=== PATIENT | female | born 1955 | race Caucasian/White ===

== ENCOUNTER 2022-03-23 20:15 | Emergency (ER) | payer MEDICARE, SELFPAY ==
[2022-03-23 20:40] VITALS: BP 141/90; PULSE 86; RESP 19; TEMP 36.6; O2SAT 99; BMI 33.6
--- NOTE | 2022-03-23 21:11 | HMH.EDUTC ---
[facility] [place] Disposition Clinical Impression: Sciatica Qualifiers: Laterality: left Qualified Code(s): M54.32 - Sciatica, left side Disposition: Home, Self-Care Condition on Discharge: Good Instructions: Sciatica, DI for Sciatica, Naproxen, Methylprednisolone Additional Instructions: *Naproxen yareli 12 hours with meal as needed for pain/inflammation *Not additional anti-inflammatory like Ibuprofen motrin, aleve, advil with the above amount of Naproxen You can still take Tylenol every 4 hours as needed if you need something else for pain moist heat every 20 minutes 3-4 times a day to affected area or warm soaks in the bath Medrol dose pack as prescribed *Keep this area active, no movement leads to more stiffness, However take it easy and avoid heavy lifting pushing or pulling *Follow up with you family doctor if no improvement for further treatment Prescriptions: methylPREDNISolone [Medrol 4mg tab] 4 mg PO DIRECTED #21 tab Transmission Status: Pending to [facility] Naproxen [Naproxen 500mg tab] 500 mg PO BID PRN #10 tab PRN Reason: Moderate Pain Transmission Status: Pending to [facility] Referrals: Jaguar Murrieta MD [Primary Care Provider] - As needed Time of Disposition: 21:24 Medical Decision Making - Deejay Inquiry Pt receiving controlled substance: No Deejay was queried for this patient: No Vital Signs: 03/23/22 20:40 Temperature 97.8 F Temperature Source Oral Pulse Rate [Right Brachial] 86 Respiratory Rate 19 Blood Pressure [Right Arm] 141/90 H Blood Pressure Mean [Right Arm] 107 Blood Pressure Source [Right Arm] Automatic Cuff Blood Pressure Position [Right Arm] Sitting 02 Sat by Pulse Oximetry 99 Oxygen Delivery Method Room Air Medical Decision Narrative: Medication discussed with pharmacy [facility] [place] HPI - General Stated complaint: muscle L Hip,both legs pain Time Seen by Provider: 03/23/22 21:11 Mode of Arrival: Ambulatory Source of Information: Patient Limitations: No Limitations Description of Symptoms (Recalled from Triage Doc. by RN): PATIENT C/O SORENESS TO LEFT HIP AND SIDE OF LEG X 2 DAYS. NO KNOWN INJURY HEENT Symptoms (Recalled from RN notes): No Resp Symptoms (Recalled from RN notes): No Skin Symptoms (Recalled from RN notes): No MS Symptoms (Recalled from RN notes): Yes Functional Status (Recalled from RN notes): WNL - History of Present Illness Provider Complaint: Patient states that she has been having burning like achy pain on and off for a few weeks in her left leg/hip area State that it starts in her bottom area and goes into the side of her left leg State that she has been favoring it and now her right leg is starting to hurt State that she has been taking Tylenol but not helped much so she wanted to come in and see if there is something else she can take State that if she is sitting it doesnt hurt unless she sits on her left hip Denies injury denies falling state that she has been going up and down the steps alot and that may have aggrivated it - Related Data Previous Rx's Medication Instructions Recorded Naproxen [Naproxen 500mg tab] 500 mg PO BID PRN #10 tab 03/23/22 methylPREDNISolone [Medrol 4mg 4 mg PO DIRECTED #21 tab 03/23/22 tab] Allergies Allergy/AdvReac Type Severity Reaction Status Date / Time No Known Allergies Allergy Verified 03/23/22 20:58 - Worker's Comp Is this a Worker's Comp case?: No [facility] History - Hepatitis A Screen Attestation statement:: This patient has been screened for Hepatitis A risk factors. I have reviewed the patient's past medical history: Yes ROS Obtained: Yes All systems reviewed & no additional complaints, Yes Systems reviewed as appropriate & no additional complaints - Constitutional Constitutional: Reports system reviewed and no additional complaints, except as docu, Denies body ache, Denies chills, Denies fever(s) - ENT Ears, Nose, Mouth, and Throat: Reports system reviewed and no a
[2022-03-23 21:15] VITALS: BP 141/90; PULSE 86; RESP 19; TEMP 36.6; O2SAT 99
== END 2022-03-23 21:29 | disposition home or self-care (01) ==
PROVIDERS: Emergency Provider Nurse Practitioner; PCP Family Medicine
DX: M54.32 Sciatica, left side (principal)
CPT/HCPCS: 99212; G0463

== ENCOUNTER 2022-03-30 13:52 | Emergency (ER) | payer MEDICARE, SELFPAY ==
[2022-03-30 15:09] VITALS: PULSE 81; RESP 20; TEMP 36.8; O2SAT 95; BMI 30.7
--- NOTE | 2022-03-30 15:10 | HMH.EDUTC ---
[facility] [place] Clinical Impression: Urinary frequency Disposition: Home, Self-Care Condition on Discharge: Good Instructions: DI for Dysuria -- Adult Additional Instructions: Drink plenty of water. Drinking some cranberry juice every day would be a good idea also. Follow up with your primary care physician. GO TO THE ER FOR ANY WORSENING SYMPTOMS OR CONCERNS Referrals: Jaguar Murrieta MD [Primary Care Provider] - Time of Disposition: 15:34 Medical Decision Making - Medical Records Medical records reviewed: No: I reviewed the patient's medical records. - Deejay Inquiry Pt receiving controlled substance: No Vital Signs: 03/30/22 15:09 03/30/22 15:48 Temperature 98.3 F 98.3 F Temperature Source Oral Pulse Rate 81 Pulse Rate [Left Radial] 81 Respiratory Rate 20 20 Blood Pressure 156/85 H 02 Sat by Pulse Oximetry 95 - Lab Data Lab results reviewed: Yes: I reviewed the patient's lab results. Lab Results 03/30/22 15:15: Urine Color Yellow, Urine Appearance Clear, Urine pH 7.0, Ur Specific [place] 1.025, Urine Protein Negative, Urine Glucose (UA) Negative, Urine Ketones Negative, Urine Blood Negative, Urine Nitrate Negative, Urine Bilirubin Negative, Urine Urobilinogen 0.2, Ur Leukocyte Esterase Negative [facility] [place] - General Stated complaint: possible bladder inf Time Seen by Provider: 03/30/22 15:23 - History of Present Illness Provider Complaint: She c/o urinary frequency for the past 2 days. She denies any fever or chills or back pain. Onset (ago): minute(s) - Related Data Home Medications Medication Instructions Recorded Confirmed methylPREDNISolone [Medrol 4mg 4 mg PO DIRECTED 03/31/22 03/31/22 tab] Previous Rx's Medication Instructions Recorded Naproxen [Naproxen 500mg tab] 500 mg PO BID PRN #10 tab 03/23/22 lisinopriL [Lisinopril] 20 mg PO DAILY #14 tab 03/31/22 Allergies Allergy/AdvReac Type Severity Reaction Status Date / Time No Known Allergies Allergy Verified 03/23/22 20:58 [facility] History - Hepatitis A Screen Attestation statement:: This patient has been screened for Hepatitis A risk factors. I have reviewed the patient's past medical history: Yes ROS Obtained: Yes All systems reviewed & no additional complaints - Constitutional Constitutional: Reports as per HPI - Eyes Eyes: Denies eye discharge - ENT Ears, Nose, Mouth, and Throat: Denies dizziness, Denies otalgia, Denies sore throat - Cardiovascular Cardiovascular: Denies chest pain - Respiratory Respiratory: Denies chest congestion, Denies cough, Denies stridor, Denies wheezing - Gastrointestinal Gastrointestingal: Denies: abdominal pain, diarrhea, nausea, vomiting - Musculoskeletal Musculoskeletal: Denies back pain - Integumentary/Breasts Skin/Breast: Denies redness, Denies rash, Denies wounds Physical Exam - General General appearance: alert, in no apparent distress - Head Head exam: atraumatic, normocephalic, normal inspection - Eye Eye exam: Present: normal appearance, PERRL, EOMI - ENT ENT exam: Present: normal exam, normal oropharynx, mucous membranes moist, TM's normal bilaterally, normal external ear exam - Neck Neck exam: Present: normal inspection, full ROM, trachea midline. Absent: meningismus, lymphadenopathy - Chest Chest inspection: Present: normal inspection, symmetric chest wall rise. Absent: tenderness - Respiratory Respiratory exam: Present: normal lung sounds bilaterally. Absent: respiratory distress - Cardiovascular Cardiovascular exam: Present: regular rate, normal rhythm. Absent: JVD - Abdominal Exam Abdominal exam: Present: soft, normal bowel sounds. Absent: distention, tenderness, guarding - Extremities Exam Extremities exam: Present: normal inspection, full ROM, normal capillary refill. Absent: calf tenderness - Back Exam Back exam: Present: normal inspection. Absent: tenderness, CVA tendernes
[2022-03-30 15:48] VITALS: BP 156/85; PULSE 81; RESP 20; TEMP 36.8
[2022-03-30 19:50] LABS: Apearance,Urine Clear (Clear); Color,Urine Yellow (Yellow); Glucose,Urine (UA) Negative (Negative); Ketones,Urine Negative (Negative); Protein,Urine Negative (Negative); Specific Gravity, Urine 1.025 (1.005-1.030)
[2022-03-30 19:51] LABS: Bilirubin,Urine Negative (Negative); Blood, Urine Negative (Negative); UTC Leukocyte Esterase,Urine Negative (Negative); UTC Nitrate,Urine Negative (Negative); Urobilinogen,Urine 0.2 EU/dl (0.2)
== END 2022-03-30 15:48 | disposition home or self-care (01) ==
PROVIDERS: Emergency Provider Nurse Practitioner Family; PCP Family Medicine
DX: R30.0 Dysuria (principal)
CPT/HCPCS: 81003; 99213; G0463

== ENCOUNTER 2022-03-31 07:11 | Emergency (ER) | payer MEDICARE, SELFPAY ==
[2022-03-31] VITALS (10 sets, daily range): BP systolic 180–206; BP diastolic 80–99; PULSE 74–86; RESP 16; TEMP 36.8–36.9; O2SAT 94–98; BMI 30.7
--- NOTE | 2022-03-31 07:39 | ECG_ITS ---
APPROVED REPORT Exam: Resting ECG HR:75 bpm ECG Measurements Heart Rate 75 AXES ID 143 P 50 QRSd 90 QRS 48 QT 375 T 17 QTc 404 Conclusion SINUS RHYTHM NONSPECIFIC T-WAVE ABNORMALITY BORDERLINE ECG UNCONFIRMED REPORT Electronically signed by : Khanh Melissa MD 03/31/2022 21:25:28
[2022-03-31 08:06] LABS: Basophils # 0.1 K/mm3 (0-0.2); Basophils % 0.8 % (0.1-2.0); Eosinophils # 0.1 K/mm3 (0.0-0.4); Eosinophils % 0.9 % (0.1-12.0); Hematocrit 40.6 % (37.0-47.0); Hemoglobin 13.7 g/dL (12.2-16.2); Lymphocytes % 13.2 % (10-50); Mean Corpuscular HGB Conc 33.6 g/dL (31.8-35.4); Mean Corpuscular Hemoglobin 31.7 pg (27.0-31.2); Mean Corpuscular Volume 94.1 fl (81-99); Mean Platelet Volume 7.9 fl (7.4-10.4); Monocytes # 0.4 K/mm3 (0.1-1.0); Monocytes % 5.5 % (1.7-9.3); Neutrophils # 5.9 K/mm3 (1.8-7.8); Neutrophils % 79.7 % (37.0-80.0); Platelet Count 266 K/mm3 (142-424); Red Blood Count 4.32 M/mm3 (4.20-5.40); Red Cell Distribution Width 14.6 % (11.5-17.5); White Blood Count 7.4 K/mm3 (4.8-10.8)
--- NOTE | 2022-03-31 08:06 | HMH.EDGENADL ---
ED Disposition Clinical Impression: Hypertension Qualifiers: Hypertension type: unspecified Qualified Code(s): I10 - Essential (primary) hypertension Disposition: Home, Self-Care Condition on Discharge: Good Instructions: DI for High Blood Pressure Additional Instructions: Lisinopril as prescribed. Follow-up with Dr. Murrieta on Wednesday at 10 AM. Take your blood pressure each morning and recorded, bring record to Dr. Murrieta on Wednesday. Prescriptions: lisinopriL [Lisinopril] 20 mg PO DAILY #14 tab Transmission Status: Pending to [facility] Referrals: Jaguar Murrieta MD [Primary Care Provider] - 04/06/22 10:00 am (See Mamta Al) - Critical Care Critical Care Time: No Attestation: On 03/31/22, the high probability of a clinically significant, sudden or life threatening deterioration of the following system(s) required my full and direct attention, intervention and personal management. The time I documented below is in addition to time spent performing reported procedures but includes the following listed in this critical care notation. Medical Decision Making - Deejay Inquiry Pt receiving controlled substance: No Vital Signs: 03/31/22 07:12 03/31/22 07:42 03/31/22 07:57 Temperature 98.2 F Temperature Source Oral Pulse Rate 77 85 Pulse Rate [Radial] 81 Respiratory Rate 16 Blood Pressure 182/86 H 181/82 H Blood Pressure [Right Arm] 206/99 H Blood Pressure Mean [Right Arm] 134 Blood Pressure Position Sitting Sitting Blood Pressure Position [Right Arm] Sitting 02 Sat by Pulse Oximetry 98 95 94 L Oxygen Delivery Method Room Air Room Air Room Air - Lab Data Lab Results 03/31/22 07:35: WBC 7.4, RBC 4.32, Hgb 13.7, Hct 40.6, MCV 94.1, MCH 31.7 H, MCHC 33.6, RDW 14.6, Plt Count 266, MPV 7.9, Neut % (Auto) 79.7, Lymph % (Auto) 13.2, [place] % (Auto) 5.5, Eos % (Auto) 0.9, Baso % (Auto) 0.8, Neut # (Auto) 5.9, Lymph # (Auto) 1.0, [place] # (Auto) 0.4, Eos # (Auto) 0.1, Baso # (Auto) 0.1 03/31/22 07:35: Sodium 140, Potassium 3.6, Chloride 104, Carbon Dioxide 28, Anion Gap 11.6, BUN 17, Creatinine 0.60, Estimated Creat Clear 72, Estimated GFR 99, Est GFR ( Amer) 120, Glucose 129 H, Calcium 9.4, Total Bilirubin 0.5, AST 25, ALT 21, Alkaline Phosphatase 89, Total Protein 7.2, Albumin 4.5, Globulin 2.7, Albumin/Globulin Ratio 1.7 Result diagrams: 03/31/22 07:35 03/31/22 07:35 Orders (Tests/Meds): ED MEDICATIONS Discontinued Medications Generic Name Dose Route Start Last Admin Trade Name Freq PRN Reason Stop Dose Admin Lisinopril 20 mg 03/31/22 08:46 Lisinopril 20mg Tablet PO 03/31/22 08:47 ONCE ONE - ECG Data Tracing #1 EKG interpreted by Kai Paul MD: Rhythm: sinus Rate: 75 [place]: normal Ectopy: none Conduction: normal ST Segment Changes: none T Wave Changes: none Q Waves: none No evidence of acute ischemia or injury - Physician Consults Physician Consulted: Jamshid Time: 08:37 Reason -: Pt condition Comment/Response: Request patient be started on lisinopril 20 mg daily and follow-up in their office next week Wednesday when Dr. Murrieta returns. General Adult HPI - General Chief complaint: PAIN Stated complaint: elevated bp, bilateral leg pain/tenderness Time Seen by Provider: 03/31/22 08:00 Mode of Arrival: Ambulatory Limitations: No Limitations Description of Symptoms (Recalled from ER Triage Doc. by RN): to ed per pvt car with c/o elevated blood pressure at home and pain in upper legs. pt seen yesterday with pain states her b/p was elevated at that time. states she took her b/p this am and it was 200/100's later it was 150/70's. pt states going on vacation and wanted to make sure everything was ok. pt denies any chest pain, h/a, sob, swelling feet ankles. - History of Present Illness HPI narrative: Complains of elevated blood pressure. States that she was seen at the urgent treatment center yesterday because she though
--- NOTE | 2022-03-31 08:13 | PC.NURSE ---
STUART SAINI at
[2022-03-31 08:15] LABS: Alanine Aminotransferase 21 U/L (12-78); Albumin Level 4.5 g/dl (3.5-5.0); Albumin/Globulin Ratio 1.7 (1.1-1.8); Alkaline Phosphatase 89 U/L (38-126); Anion Gap 11.6 mEq/L (5-15); Aspartate Amino Transferase 25 U/L (14-36); Bilirubin,Total 0.5 mg/dl (0.2-1.3); Blood Urea Nitrogen 17 mg/dl (7-17); Calcium 9.4 mg/dl (8.4-10.2); Carbon Dioxide 28 mmol/L (22.0-30.0); Chloride 104 mmol/L (98-107); Creatinine Clearance Estimated 72 mL/min (50-200); Estimated Glomerular Filt Rate 99 ml/min (>60); GFR (African American) 120 ML/MIN (>60); Globulin 2.7 g/dL (1.3-3.2); Glucose 129 mg/dl (74-100); Potassium 3.6 mmoL/L (3.5-5.1); Sodium 140 mmol/L (136-145); Total Protein,Serum 7.2 g/dl (6.3-8.2)
--- NOTE | 2022-03-31 08:35 | PC.NURSE ---
STUART SAINI speaking with Dr. Breen who is photonics engineering technologist for Dr. Murrieta
== END 2022-03-31 09:40 | disposition home or self-care (01) ==
PROVIDERS: Emergency Medicine; Emergency Provider Emergency Medicine; PCP Family Medicine
DX: I10 Essential (primary) hypertension (principal); M79.605 Pain in left leg; M79.604 Pain in right leg; Z79.899 Other long term (current) drug therapy
CPT/HCPCS: 80053; 85025; 93005; 96374; 99283